=== PATIENT | female | born 1965 | race Hispanic/Latino ===

== ENCOUNTER 2017-07-06 00:10 | Emergency (ER) | payer MEDICAID ==
[2017-07-06 00:22] VITALS: BP 81/43; RESP 20; TEMP 98.8; O2SAT 98
--- NOTE | 2017-07-06 00:38 | ED PDOC ---
Arrival/HPI - General Chief Complaint: Back Pain Time Seen by Provider: 07/06/17 00:23 Historian: Patient - History of Present Illness Narrative History of Present Illness (Text): 07/06/17 00:38 Mitzi Silveira is a 52 year old female, whose past medical history includes back surgery, who presents to the Emergency department complaining of back pain. Patient states she has been experiencing progressively worsening right-sided lower back pain since yesterday morning. Patient describes pain as a shooting pain radiating to her right lower extremity and is worsened when she standing or sitting. Patient states she took Endocet at home, but denies any significant relief. Patient denies any weakness/numbness/tingling in her extremities, bowel/ urinary incontinence, saddle paresthesias, headache, dizziness, fever, chills, abdominal pain, nausea, vomiting, or any other complaints. Time/Duration: 24 hours Symptom Onset: Gradual Symptom Course: Worsening Activities at Onset: Light Context: Home Past Medical History - Provider Review Nursing Documentation Reviewed: Yes - Reproductive Menopause: Yes - Musculoskeletal/Rheumatological Hx Musculoskeletal Disorders: Yes Hx Back Pain: Yes - Psychiatric Hx Substance Use: No - Surgical History Other/Comment: back surgery Family/Social History - Physician Review Nursing Documentation Reviewed: Yes Family/Social History: Unknown Family HX Smoking Status: Light Smoker < 10 Cigarettes Daily Hx Alcohol Use: No Hx Substance Use: No Allergies/Home Meds Allergies/Adverse Reactions: Allergies No Known Allergies Allergy (Verified 07/06/17 00:20) Review of Systems - Physician Review All systems were reviewed & negative as marked: Yes - Review of Systems Constitutional: Normal. absent: Fevers Eyes: Normal ENT: Normal Respiratory: Normal. absent: SOB, Cough Cardiovascular: Normal. absent: Chest Pain Gastrointestinal: Normal. absent: Abdominal Pain, Diarrhea, Nausea, Vomiting Genitourinary Female: Normal. absent: Dysuria, Frequency, Hematuria, Urine Output Changes Musculoskeletal: Back Pain. absent: Neck Pain Skin: Normal. absent: Rash Neurological: Normal. absent: Headache, Dizziness Endocrine: Normal Hemo/Lymphatic: Normal Psychiatric: Normal Physical Exam Vital Signs Reviewed: Yes Vital Signs Temp Pulse Resp BP Pulse Ox 07/06/17 02:36 86 20 98 07/06/17 00:20 98.8 F 88 20 81/43 L 98 Temperature: Afebrile Blood Pressure: Normal Pulse: Regular Respiratory Rate: Normal Appearance: Positive for: Well-Appearing, Non-Toxic, Comfortable Pain Distress: None Mental Status: Positive for: Alert and Oriented X 3 - Systems Exam Head: Present: Atraumatic, Normocephalic Pupils: Present: PERRL Extroacular Muscles: Present: EOMI Conjunctiva: Present: Normal Mouth: Present: Moist Mucous Membranes Neck: Present: Normal Range of Motion Respiratory/Chest: Present: Clear to Auscultation, Good Air Exchange. No: Respiratory Distress, Accessory Muscle Use Cardiovascular: Present: Regular Rate and Rhythm, Normal S1, S2. No: Murmurs Abdomen: Present: Normal Bowel Sounds. No: Tenderness, Distention, Peritoneal Signs Back: Present: Normal Inspection. No: CVA Tenderness, Midline Tenderness, Paraspinal Tenderness Upper Extremity: Present: Normal Inspection. No: Cyanosis, Edema Lower Extremity: Present: Normal Inspection. No: Edema Neurological: Present: GCS=15, CN II-XII Intact, Speech Normal Skin: Present: Warm, Dry, Normal Color. No: Rashes Psychiatric: Present: Alert, Oriented x 3, Normal Insight, Normal Concentration Medical Decision Making ED Course and Treatment: 07/06/17 00:38 Impression: 52 year old female complaining of right-sided lower back pain radiating to right lower extremity. Differential Diagnosis included but are not limited to: sciatica vs. chronic back pain Plan: -- CT Lumbar Spine w/o contrast -- Toradol -- Reassess and disposition Progress Notes: Reviewed [place] [facility], pt received 60 tablets of Hydromorphone 8mg on 06/24/2017 and 180 tablets of Endocet 10-325mg on 06/10/2017. 07/06/17 02:10 Reviewed radiology, CT Lumbar Spine shows: Vertebrae: No acute fracture. Discs/spinal canal/neural foramina: Mild disc herniations at L4-L5, L5-S1 levels. Mild central canal stenosis at L4-L5, L5-S1 levels. Soft tissues: Unremarkable. Vasculature: Mild varices within upper abdomen. Spleen: Enlarged spleen, incompletely imaged. Intraperitoneal space: Trace free fluid within pelvis. Reproductive: Coarse calcification within uterus, likely fibroid. IMPRESSION: 1. No fracture. 2. If back pain persists, consider MRI for further evaluation. 3. Incidental/non-acute findings are described above. 07/06/17 02:30 On reevaluation the patient feels better and is in no acute distress. Discussed the results and plan with the patient, who expresses understanding. Patient is stable for discharge. Patient was instructed to follow up with physician/clinic in 1-2 days or return if symptoms persist/worsen or new concerning symptoms arise. - RAD Interpretation Radiology Orders: 07/06/17 01:12 LUMBAR SPINE W/O CONTRAST [CT] Stat - Medication Orders Current Medication Orders: Discontinued Medications Ketorolac Tromethamine (Toradol) 30 mg IM ONCE ONE Stop: 07/06/17 00:43 Last Admin: 07/06/17 00:53 Dose: 30 mg MAR Pain Assessment Document 07/06/17 00:53 SS (Rec: 07/06/17 00:54 [id number] Pain Reassessment Is this a pain reassessment? No Sleep Is patient sleeping during reassessment? No Presence of Pain Presence of Pain Yes Pain Scale Used Pain Scale Used Numeric Location Left, Right or Bilateral Right Upper or Lower Lower Pain Location Body Site Back Description Intensity of Pain at present 10 Pain Behavior Moaning Crying Irritability Restlessness Facial Grimacing Screaming IM Administration Charges Document 07/06/17 00:53 SS (Rec: 07/06/17 00:54 [id number]) Charges for Administration # of IM Administrations 1 - Scribe Statement The provider has reviewed the documentation as recorded by the Scribsteve Clemons All medical record entries made by the Scribe were at my direction and personally dictated by me. I have reviewed the chart and agree that the record accurately reflects my personal performance of the history, physical exam, medical decision making, and the department course for this patient. I have also personally directed, reviewed, and agree with the discharge instructions and disposition. Disposition/Present on Arrival - Present on Arrival Any Indicators Present on Arrival: No History of DVT/PE: No History of Uncontrolled Diabetes: No Urinary Catheter: No History of Decub. Ulcer: No History Surgical Site Infection Following: None - Disposition Have Diagnosis and Disposition been Completed?: Yes Diagnosis: Lumbar radiculopathy Disposition: HOME/ ROUTINE Disposition Time: 02:30 Condition: IMPROVED Discharge Instructions (ExitCare): Acute Low Back Pain (ED) Prescriptions: Naproxen 375 mg PO BID #12 tablet Forms: [facility] (Thai)
--- NOTE | 2017-07-06 02:21 | CT ---
EXAM: CT Lumbar Spine Without Intravenous Contrast CLINICAL HISTORY: 52 years old, female; Pain; Low back pain TECHNIQUE: Axial computed tomography images of the lumbar spine without intravenous contrast. All CT scans at this facility use one or more dose reduction techniques, viz.: automated exposure control; ma/kV adjustment per patient size (including targeted exams where dose is matched to indication; i.e. head); or iterative reconstruction technique. Coronal and sagittal reformatted images were created and reviewed. COMPARISON: MR - SPINAL CANAL LUMBAR W/O CONT 2017-04-09 10:40 FINDINGS: Vertebrae: No acute fracture. Discs/spinal canal/neural foramina: Mild disc herniations at L4-L5, L5-S1 levels. Mild central canal stenosis at L4-L5, L5-S1 levels. Soft tissues: Unremarkable. Vasculature: Mild varices within upper abdomen. Spleen: Enlarged spleen, incompletely imaged. Intraperitoneal space: Trace free fluid within pelvis. Reproductive: Coarse calcification within uterus, likely fibroid. IMPRESSION: 1. No fracture. 2. If back pain persists, consider MRI for further evaluation. 3. Incidental/non-acute findings are described above.
[2017-07-06 02:37] VITALS: PULSE 86
== END 2017-07-06 02:46 | disposition home or self-care (01) ==
LOC: ED 00:10
DX: M54.16 Radiculopathy, lumbar region (principal); F17.210 Nicotine dependence, cigarettes, uncomplicated
CPT/HCPCS: 72131; 96372; 99283; J1885

== ENCOUNTER 2018-03-29 20:39 | Emergency (ER) | payer MEDICARE ==
[2018-03-29 20:41] VITALS: BMI 27.4
[2018-03-29 20:43] VITALS: RESP 18
[2018-03-29] MEDS ORDERED: TDAP Vaccine 0.5 mL Syr IM ONE (21:13)
--- NOTE | 2018-03-29 21:25 | ED PDOC ---
Arrival/HPI - General Chief Complaint: Finger,Hand,&Wrist Time Seen by Provider: 03/29/18 21:12 Historian: Patient, Usp - History of Present Illness Narrative History of Present Illness (Text): 03/29/18 21:21 53-year-old female presents today with possible foreign body in the right wrist. Patient states that she was injecting heroin today approximately 3 hours prior to arrival when the needle broke off in the dorsal aspect of the wrist. Patient states she tried to get the needle out with a pin and states that she was scraping the skin so she could not tell if the needle was removed because of the bleeding. Patient states she has some pain to the site but she thinks is because she has irritated the skin. Patient denies swelling. Denies fevers or chills. Unsure of her last tetanus shot. No other complaints. Past Medical History - Provider Review Nursing Documentation Reviewed: Yes - Travel History Have you recently traveled outside [place] w/in the past 3 mons?: No - Infectious Disease Hx of Infectious Diseases: None - Tetanus Immunization Tetanus Immunization: Unknown - Musculoskeletal/Rheumatological Hx Musculoskeletal Disorders: Yes Hx Back Pain: Yes - Psychiatric Hx Substance Use: Yes Other/Comment: heroine use - Surgical History Other/Comment: back surgery Family/Social History - Physician Review Nursing Documentation Reviewed: Yes Family/Social History: Unknown Family HX Smoking Status: Light Smoker < 10 Cigarettes Daily Hx Alcohol Use: No Hx Substance Use: Yes Substance used: heroine Allergies/Home Meds Allergies/Adverse Reactions: Allergies No Known Allergies Allergy (Verified 07/06/17 00:20) Review of Systems - Review of Systems Constitutional: absent: Fatigue, Fevers Respiratory: absent: SOB, Cough Cardiovascular: absent: Chest Pain, Palpitations Gastrointestinal: absent: Abdominal Pain, Nausea, Vomiting Musculoskeletal: Arthralgias Skin: Other (possible fb in skin of right wrist) Psychiatric: absent: Anxiety, Depression Physical Exam Vital Signs Reviewed: Yes Vital Signs Temp Pulse Resp BP Pulse Ox 03/29/18 20:43 97.8 F 86 18 148/90 97 Temperature: Afebrile Blood Pressure: Normal Pulse: Regular Respiratory Rate: Normal Appearance: Positive for: Well-Appearing, Non-Toxic, Comfortable Pain Distress: None Mental Status: Positive for: Alert and Oriented X 3 - Systems Exam Head: Present: Atraumatic Mouth: Present: Moist Mucous Membranes Neck: Present: Normal Range of Motion Respiratory/Chest: Present: Clear to Auscultation Cardiovascular: Present: Regular Rate and Rhythm Upper Extremity: Present: Normal ROM, NORMAL PULSES, Tenderness (right dorsal wrist there are superficial abrasions noted along ulnar aspect of wrist; no visualized or palpable foreign body noted.), Neurovascularly Intact, Capillary Refill < 2s. No: Swelling, Erythema, Deformity Neurological: Present: GCS=15 Skin: Present: Warm, Dry, Normal Color Psychiatric: Present: Alert, Oriented x 3 Medical Decision Making ED Course and Treatment: 03/29/18 21:25 53-year-old presenting with questionable foreign body in the right wrist status post heroin injection 3 hours prior to arrival X-rays of the right wrist: + metallic FB noted X-ray of the right forearm: + metallic FB noted in wrist. Tetanus updated bactrim and keflex given po Dr. Turcios was consulted. vice president payment saw the patient at bedside and discussed the case in depth with the surgeon, Dr. Turcios. Foreign body was removed at bedside. One suture was placed. Patient to be discharged home with Bactrim and Keflex and return in 10 days for suture removal. I again advised to follow-up plan with the patient advised return in 10 days for suture removal and immediately return of any signs of infection develop. Stressed importance of taking the antibiotics as prescribed and using bacitracin twice daily. Patient verbalizes understanding of discharge instructions and need for immediate followup. all aspects of this case were discussed the attending of record. Impression: Foreign body skin Bactrim 1 tablet twice daily 7 days Keflex 1 capsule 4 times daily 7 days Follow-up with the surgeon within the next 2 days Return in 10 days for suture removal. Follow up with the primary care physician within the next 2 days. Keep wound clean and dry. apply bacitracin twice daily. Return immediately if signs of infection develop: High fevers, increasing pain, increasing redness, increasing swelling, purulent discharge Reassessment Condition: Re-examined, Improved - RAD Interpretation Radiology Orders: 03/29/18 21:12 FOREARM RIGHT [RAD] Stat WRIST, RIGHT 3 VIEWS [RAD] Stat - Medication Orders Current Medication Orders: Discontinued Medications Cephalexin Monohydrate (Keflex) 500 mg PO STAT STA PRN Reason: Protocol Stop: 03/29/18 21:42 Last Admin: 03/29/18 21:48 Dose: 500 mg Tetanus/Reduced Diphtheria/Acell Pertussis (Boostrix Vaccine Inj) 0.5 ml IM .ONCE ONE Stop: 03/29/18 21:14 Last Admin: 03/29/18 21:17 Dose: 0.5 ml MAR Immunization Data Document 03/29/18 21:17 SCOTT (Rec: 03/29/18 21:17 [place] [id number]) Immunization Data Vaccine Information Sheet Given Yes Immunization Registry Document 03/29/18 21:17 SCOTT (Rec: 03/29/18 21:17 [place] [id number]) Immunization Registry Consent Date 03/29/18 Trimethoprim/Sulfamethoxazole (Bactrim Ds Tab) 1 tab PO STAT STA PRN Reason: Protocol Stop: 03/29/18 21:42 Last Admin: 03/29/18 21:48 Dose: 1 tab Disposition/Present on Arrival - Present on Arrival Any Indicators Present on Arrival: No History of DVT/PE: No History of Uncontrolled Diabetes: No Urinary Catheter: No History of Decub. Ulcer: No History Surgical Site Infection Following: None - Disposition Have Diagnosis and Disposition been Completed?: Yes Diagnosis: Foreign body (FB) in soft tissue Disposition: HOME/ ROUTINE Disposition Time: 23:54 Patient Plan: Discharge Condition: GOOD Discharge Instructions (ExitCare): Foreign Body in Skin (DC) Additional Instructions: Bactrim 1 tablet twice daily 7 days Keflex 1 capsule 4 times daily 7 days Follow-up with the surgeon within the next 2 days Return in 10 days for suture removal. Follow up with the primary care physician within the next 2 days. Keep wound clean and dry. apply bacitracin twice daily. Return immediately if signs of infection develop: High fevers, increasing pain, increasing redness, increasing swelling, purulent discharge Prescriptions: Bacitracin OINT 1 applic TP BID #1 tube Cephalexin [Keflex] 500 mg PO QID #28 capsule Sulfamethoxazole/Trimethoprim [Bactrim DS 800 mg-160 mg] 1 tab PO BID #14 tab Referrals: Gamal Blanchard MD [Primary Care Provider] - Follow up with primary Amos Turcios MD [Staff Provider] - Follow up with primary [facility] [place] - Follow up with primary Forms: [employer] (Cambodian)
[2018-03-29] MEDS ORDERED: Tmp-Smz 800 mg-160 mg DS Tab PO STA (21:41)
[2018-03-30 00:09] VITALS: BP 118/83; PULSE 67; TEMP 97.9; O2SAT 100
--- NOTE | 2018-03-30 00:35 | CP.PCM.CON ---
History of Present Illness - History of Present Illness History of Present Illness: generalsurgery consult note for Dr. Turcios consulted for foreign body in right arm Mitzi deluca is a 53 yr old female with PMH heroin abuse presenting with a needle embedded in the dorsal aspect of her right wrist. Patient states that she was injecting heroin and the needle broke off. She attempted to remove it with a razor and a pin but was unsuccessful. She denies any f/c, n/v. PMH: none PSH: Back surgery Allergies: NKDA Social: heroin abuse, 1/2 ppd smoker Review of Systems - Review of Systems All systems: reviewed and no additional remarkable complaints except Review of Systems: as per HPI Past Patient History - Infectious Disease Hx of Infectious Diseases: None - Tetanus Immunizations Tetanus Immunization: Unknown - Past Social History Smoking Status: Light Smoker < 10 Cigarettes Daily - MUSCULOSKELETAL/RHEUMATOLOGICAL Hx Musculoskeletal Disorders: Yes Hx Back Pain: Yes - PSYCHIATRIC Hx Substance Use: Yes Other/Comment: heroine use - SURGICAL HISTORY Other/Comment: back surgery Meds Home Medications: Home Medication List Medication Instructions Recorded Confirmed Type Bacitracin OINT 1 applic TP BID #1 tube 03/29/18 Rx Cephalexin [Keflex] 500 mg PO QID #28 capsule 03/29/18 Rx Sulfamethoxazole/Trimethoprim 1 tab PO BID #14 tab 03/29/18 Rx [Bactrim DS 800 mg-160 mg] Allergies/Adverse Reactions: Allergies Allergy/AdvReac Type Severity Reaction Status Date / Time No Known Allergies Allergy Verified 07/06/17 00:20 Physical Exam - Constitutional Appears: Well, Non-toxic - Head Exam Head Exam: ATRAUMATIC, NORMOCEPHALIC - ENT Exam ENT Exam: Mucous Membranes Dry - Respiratory Exam Respiratory Exam: NORMAL BREATHING PATTERN - Extremities Exam Extremities exam: Positive for: full ROM, normal capillary refill. Negative for : joint swelling Additional comments: s,mall foreign body entry wound on dorsal aspect of right wrist - Neurological Exam Neurological exam: Alert, Oriented x3 Additional comments: sensation and motor function in right hand is intact - Psychiatric Exam Psychiatric exam: Anxious - Skin Additional comments: small entry wound on dorsal aspect of right hand and excoriation d/t attempts to remove object Results - Vital Signs Recent Vital Signs: Last Vital Signs Temp 97.9 F 03/30/18 00:07 Pulse 67 03/30/18 00:07 Resp 18 03/30/18 00:07 BP 118/83 03/30/18 00:07 Pulse Ox 100 03/30/18 00:07 Assessment & Plan - Assessment and Plan (Free Text) Assessment: 53 yr old female with small foreign body in the dorsal aspect of the right wrist Plan: - incision and extraction of foreign body using venous cut down tray - if removal not possible would take patient to OR in AM -needle was removed and was intact, incision was closed with a 4.0 prolene suture - discussed plan with Dr. Tam Colindres PGY1 - Date & Time Date: 03/29/18 Time: 11:15
--- NOTE | 2018-03-30 00:51 | PCM.PROC ---
Procedures Attestation:: I certify that I have explained the specified Operation(s) or Procedure(s), risks, benefits and reasonable alternatives to the Patient and/or other person responsible. The opportunity was given to ask questions and all questions answered - Foreign Body Removal Consent Obtained: written consent (obtained by Ju Colindres, PGY1 who performed the removal) Site: upper extremity (dorsal aspect of right wrist) Description of foreign body: needle Sedation/Analgesia: none Technique: manual removal, incision made to facilitate removal Confirmed by:: direct visualization, patient report, palpation Complications:: None Post-procedure exam: Awake, alert Neurovascular: Normal distal pulse, Normal capillary, Distal light touch sensation intact, Distal motor function normal, No change from pre-procedure
--- NOTE | 2018-03-30 07:37 | RAD ---
PROCEDURE: Radiographs of the Right Forearm HISTORY: needle broke off, dorsal wrist, heroin COMPARISON: None available. TECHNIQUE: Frontal and lateral views obtained. FINDINGS: BONES: No fracture or destructive lesion. JOINT SPACES: Unremarkable. OTHER FINDINGS: None. IMPRESSION: There is a 6 mm broken needle tip dorsal to the distal radius
--- NOTE | 2018-03-30 10:11 | RAD ---
Date of service: 03/29/2018 PROCEDURE: Right Wrist Radiographs. HISTORY: needle broke off in wrist during heroin use COMPARISON: None. FINDINGS: BONES: Normal. No fracture. JOINTS: Normal. No dislocation. SOFT TISSUES: 7 mm broken needle tip dorsal to the distal radius OTHER FINDINGS: None. IMPRESSION: 7 mm broken needle tip dorsal to the distal radius
== END 2018-03-30 00:07 | disposition home or self-care (01) ==
LOC: ED 20:39
DX: S60.851A Superficial foreign body of right wrist, initial encounter (principal); X58.XXXA Exposure to other specified factors, initial encounter; Y92.89 Other specified places as the place of occurrence of the external cause; Z23 Encounter for immunization

== ENCOUNTER 2018-04-21 12:11 | Emergency (ER) | payer MEDICARE, MEDICAID ==
[2018-04-21 12:35] VITALS: PULSE 68; RESP 18; TEMP 97; BMI 24.9
--- NOTE | 2018-04-21 12:43 | ED PDOC ---
Arrival/HPI - General Chief Complaint: Suture/Staple Removal Time Seen by Provider: 04/21/18 12:23 Historian: Patient - History of Present Illness Narrative History of Present Illness (Text): 04/21/18 12:25 Mitzi Silveira is a 53 year old female, with no significant past medical history, who presents to the Emergency department for removal of one suture to right lower hand (wrist). Patient denies any fever, chills, chest pain, shortness of breath, cough, abdominal pain, back pain, neck pain, nausea, vomiting, diarrhea , or any other complaints. Time/Duration: Prior to Arrival Symptom Course: Improving Activities at Onset: Light Context: Home Past Medical History - Provider Review Nursing Documentation Reviewed: Yes - Infectious Disease Hx of Infectious Diseases: None - Tetanus Immunization Tetanus Immunization: Unknown - Reproductive Menopause: Yes - Cardiac Hx Cardiac Disorders: No - Musculoskeletal/Rheumatological Hx Musculoskeletal Disorders: Yes Hx Back Pain: Yes - Psychiatric Hx Substance Use: Yes Other/Comment: heroine use - Surgical History Other/Comment: back surgery - Anesthesia Hx Anesthesia: Yes Hx Anesthesia Reactions: No Hx Malignant Hyperthermia: No Family/Social History - Physician Review Nursing Documentation Reviewed: Yes Family/Social History: No Known Family HX Smoking Status: Light Smoker < 10 Cigarettes Daily Hx Alcohol Use: No Hx Substance Use: Yes Substance used: heroine Allergies/Home Meds Allergies/Adverse Reactions: Allergies No Known Allergies Allergy (Verified 04/21/18 12:34) Review of Systems - Physician Review All systems were reviewed & negative as marked: Yes - Review of Systems Constitutional: Normal. absent: Fevers Eyes: Normal ENT: Normal Respiratory: Normal. absent: SOB, Cough Cardiovascular: Normal Gastrointestinal: Normal. absent: Abdominal Pain, Diarrhea, Nausea, Vomiting Genitourinary Female: Normal Musculoskeletal: Normal Skin: Other (right lower hand removal of 1 suture). absent: Rash Neurological: Normal. absent: Headache Endocrine: Normal Hemo/Lymphatic: Normal Psychiatric: Normal Physical Exam Vital Signs Reviewed: Yes Vital Signs Temp Pulse Resp BP Pulse Ox 04/21/18 12:43 97 F L 68 18 107/65 100 04/21/18 12:30 97 F L 68 18 95/68 L 98 Temperature: Afebrile Blood Pressure: Hypotensive Pulse: Regular Respiratory Rate: Normal Appearance: Positive for: Well-Appearing, Non-Toxic, Comfortable Pain Distress: None Mental Status: Positive for: Alert and Oriented X 3 - Systems Exam Head: Present: Atraumatic, Normocephalic Pupils: Present: PERRL Extroacular Muscles: Present: EOMI Conjunctiva: Present: Normal Mouth: Present: Moist Mucous Membranes Neck: Present: Normal Range of Motion Respiratory/Chest: Present: Clear to Auscultation, Good Air Exchange. No: Respiratory Distress, Accessory Muscle Use Cardiovascular: Present: Regular Rate and Rhythm, Normal S1, S2. No: Murmurs Abdomen: No: Tenderness, Distention, Peritoneal Signs Back: Present: Normal Inspection Upper Extremity: Present: Normal Inspection, Other (no infection to area where suture removed). No: Cyanosis, Edema Lower Extremity: Present: Normal Inspection. No: Edema Neurological: Present: GCS=15, CN II-XII Intact, Speech Normal Skin: Present: Warm, Dry, Normal Color. No: Rashes Psychiatric: Present: Alert, Oriented x 3, Normal Insight, Normal Concentration Medical Decision Making ED Course and Treatment: 04/21/18 12:25 Impression: 53 year old female presents to the Emergency department for removal of one suture on right lower hand (wrist). Prior Visits: Notes and results from previous visits were reviewed. Patient was last seen in the Emergency department on 03/29/18 for possible foreign body in the right wrist. Pt was discharged home with instructions for care and directed to follow up with PMD. Progress Notes: 04/21/18 12:40 Suture from right lower hand (wrist) was removed. 04/21/18 12:50 Patient discharged home with instructions for care and directed to follow up with PMD. - Scribe Statement The provider has reviewed the documentation as recorded by the Scribsteve Aviles All medical record entries made by the Scribe were at my direction and personally dictated by me. I have reviewed the chart and agree that the record accurately reflects my personal performance of the history, physical exam, medical decision making, and the department course for this patient. I have also personally directed, reviewed, and agree with the discharge instructions and disposition. Disposition/Present on Arrival - Present on Arrival History of DVT/PE: No History of Uncontrolled Diabetes: No Urinary Catheter: No History of Decub. Ulcer: No History Surgical Site Infection Following: None - Disposition Diagnosis: Encounter for wound re-check, Encounter for removal of sutures Disposition: HOME/ ROUTINE Condition: IMPROVED Discharge Instructions (ExitCare): Stitches Removal Additional Instructions: Call private doctor for follow up visit in 1-2 days. Return to emergency if wound becomes infection. Referrals: Gamal Blanchard MD [Primary Care Provider] - Follow up with primary Forms: [employer] (Turkish)
[2018-04-21 12:48] VITALS: BP 107/65; O2SAT 100
--- NOTE | 2018-04-21 13:55 | ED PDOC ---
Arrival/HPI - General Chief Complaint: Suture/Staple Removal Time Seen by Provider: 04/21/18 12:23 Historian: Patient - History of Present Illness Narrative History of Present Illness (Text): 04/21/18 12:25 Mitzi Silveira is a 53 year old female, with no significant past medical history, who presents to the Emergency department for removal of one suture to right lower hand (wrist). Patient denies any fever, chills, chest pain, shortness of breath, cough, abdominal pain, back pain, neck pain, nausea, vomiting, diarrhea , or any other complaints. Time/Duration: Prior to Arrival Symptom Course: Improving Activities at Onset: Light Context: Home Past Medical History - Provider Review Nursing Documentation Reviewed: Yes - Infectious Disease Hx of Infectious Diseases: None - Tetanus Immunization Tetanus Immunization: Unknown - Reproductive Menopause: Yes - Cardiac Hx Cardiac Disorders: No - Musculoskeletal/Rheumatological Hx Musculoskeletal Disorders: Yes Hx Back Pain: Yes - Psychiatric Hx Substance Use: Yes Other/Comment: heroine use - Surgical History Other/Comment: back surgery - Anesthesia Hx Anesthesia: Yes Hx Anesthesia Reactions: No Hx Malignant Hyperthermia: No Family/Social History - Physician Review Nursing Documentation Reviewed: Yes Family/Social History: No Known Family HX Smoking Status: Light Smoker < 10 Cigarettes Daily Hx Alcohol Use: No Hx Substance Use: Yes Substance used: heroine Allergies/Home Meds Allergies/Adverse Reactions: Allergies No Known Allergies Allergy (Verified 04/21/18 12:34) Review of Systems - Physician Review All systems were reviewed & negative as marked: Yes - Review of Systems Constitutional: Normal. absent: Fevers Eyes: Normal ENT: Normal Respiratory: Normal Cardiovascular: Normal. absent: Chest Pain Gastrointestinal: Normal. absent: Abdominal Pain, Diarrhea, Nausea, Vomiting Genitourinary Female: Normal Musculoskeletal: Normal. absent: Back Pain, Neck Pain Skin: Other (1 suture on right lower hand (wrist)). absent: Normal Neurological: Normal Endocrine: Normal Hemo/Lymphatic: Normal Psychiatric: Normal Physical Exam Vital Signs Reviewed: Yes Vital Signs Temp Pulse Resp BP Pulse Ox 04/21/18 12:43 97 F L 68 18 107/65 100 04/21/18 12:30 97 F L 68 18 95/68 L 98 Temperature: Afebrile Blood Pressure: Hypotensive Pulse: Regular Respiratory Rate: Normal Appearance: Positive for: Well-Appearing, Non-Toxic, Comfortable Pain Distress: None Mental Status: Positive for: Alert and Oriented X 3 - Systems Exam Head: Present: Atraumatic, Normocephalic Pupils: Present: PERRL Extroacular Muscles: Present: EOMI Conjunctiva: Present: Normal Mouth: Present: Moist Mucous Membranes Neck: Present: Normal Range of Motion Respiratory/Chest: Present: Clear to Auscultation, Good Air Exchange. No: Respiratory Distress, Accessory Muscle Use Cardiovascular: Present: Regular Rate and Rhythm, Normal S1, S2. No: Murmurs Abdomen: No: Tenderness, Distention, Peritoneal Signs Back: Present: Normal Inspection Upper Extremity: Present: Normal Inspection. No: Cyanosis, Edema Lower Extremity: Present: Normal Inspection. No: Edema Neurological: Present: GCS=15, CN II-XII Intact, Speech Normal Skin: Present: Warm, Dry, Normal Color. No: Rashes Psychiatric: Present: Alert, Oriented x 3, Normal Insight, Normal Concentration Medical Decision Making ED Course and Treatment: 04/21/18 12:25 Impression: 53 year old female presents to the Emergency department for removal of one suture on right lower hand (wrist). Prior Visits: Notes and results from previous visits were reviewed. Patient was last seen in the Emergency department on 03/29/18 for possible foreign body in the right wrist. Pt was discharged home with instructions for care and directed to follow up with PMD. Progress Notes: 04/21/18 12:40 Suture from right lower hand (wrist) was removed. 04/21/18 12:50 Patient discharged home with instructions for care and directed to follow up with PMD. - Scribe Statement The provider has reviewed the documentation as recorded by the Scribsteve Aviles All medical record entries made by the Scribsteve were at my direction and personally dictated by me. I have reviewed the chart and agree that the record accurately reflects my personal performance of the history, physical exam, medical decision making, and the department course for this patient. I have also personally directed, reviewed, and agree with the discharge instructions and disposition. Disposition/Present on Arrival - Present on Arrival History of DVT/PE: No History of Uncontrolled Diabetes: No Urinary Catheter: No History of Decub. Ulcer: No History Surgical Site Infection Following: None - Disposition Diagnosis: Encounter for wound re-check, Encounter for removal of sutures Disposition: HOME/ ROUTINE Condition: IMPROVED Discharge Instructions (ExitCare): Stitches Removal Additional Instructions: Call private doctor for follow up visit in 1-2 days. Return to emergency if wound becomes infection. Referrals: Gamal Blanchard MD [Primary Care Provider] - Follow up with primary Forms: [employer] (Faroese)
== END 2018-04-21 12:43 | disposition home or self-care (01) ==
LOC: ED 12:11
DX: Z48.02 Encounter for removal of sutures (principal)